=== PATIENT | female | born 1985 | race Caucasian/White ===

== ENCOUNTER 2019-04-15 21:22 | Emergency (ER) | payer MEDICAID ==
[~2019-04-15] VITALS: Ht 170.2 cm; Wt 68.2 kg
[2019-04-15 21:39] VITALS: BP 137/75; Ht 170.2 cm; Wt 68.2 kg
[2019-04-15 22:11] LABS: BASOPHILS 0.2 % (0-2); EOSINOPHILS 8.6 % (0-7); HEMATOCRIT 38.5 % (36.0-48.0); HEMOGLOBIN 12.9 g/dL (12-16); IMMATURE GRANULOCYTES 0.2 % (0-5); LYMPHOCYTES 25.5 % (15-50); MCH 29.3 pg (26.0-34.0); MCHC 33.5 g/dL (31.0-37.0); MCV 87.5 fL (80.0-100.0); MEAN PLATELET VOLUME 8.9 fL (7.4-10.4); MONOCYTES 8.8 % (2-11); NEUTROPHILS 56.7 % (40-80); PLATELET COUNT 206 10x3/uL (130-400); WBC 4.9 10x3/uL (4.8-10.8)
[2019-04-15 22:18] LABS: APPEARANCE HAZY (CLEAR); BILIRUBIN NEGATIVE (NEGATIVE); COLOR YELLOW (YELLOW); GLUCOSE NEGATIVE (NEGATIVE); KETONE NEGATIVE (NEGATIVE); NITRITE NEGATIVE (NEGATIVE); PROTEIN NEGATIVE (NEGATIVE); UROBILINOGEN NORMAL (NORMAL)
[2019-04-15 22:23] LABS: HCG URINE NEGATIVE (NEGATIVE)
[2019-04-15 22:23] LABS: CALC OSMOLALITY 282 mosm/kg (275-300); CALCIUM 9.2 mg/dL (8.5-10.1); CARBON DIOXIDE 30.4 mmol/L (21.0-32.0); CHLORIDE - SERUM 104 mmol/L (98-107); CREATININE - SERUM 0.8 mg/dL (0.6-1.3); GLUCOSE 118 mg/dL (74-106); SODIUM 141 mmol/L (136-145); UREA NITROGEN 14 mg/dL (7-18); eGFR NON AFRICAN AMERICAN 87 mL/min (90-120)
[2019-04-15 22:32] LABS: ALBUMIN 3.5 g/dL (3.4-5.0); ALKALINE PHOSPHATASE 79 U/L (46-116); ALT (SGPT) 110 U/L (10-68); AMYLASE - SERUM 17 U/L (25-115); BILIRUBIN - TOTAL 0.34 mg/dL (0.2-1.3); LIPASE 59 U/L (73-393); PROTEIN - SERUM 6.6 g/dL (6.4-8.2); TROPONIN-I < 0.017 ng/mL (0.000-0.060)
[2019-04-16] MEDS ORDERED: CLEOCIN HCL300 MG PO (00:07)
[2019-04-16] MEDS ORDERED: NEURONTIN600 MG PO (00:07)
[2019-04-16] MEDS ORDERED: PREDNISONE20 MG PO (00:07)
== END 2019-04-15 23:16 | disposition other institution (70) ==
LOC: D.ER 21:22
PROVIDERS: Family Medicine
DX: J01.90 Acute sinusitis, unspecified (principal); N89.8 Other specified noninflammatory disorders of vagina; Z72.0 Tobacco use; K50.90 Crohn's disease, unspecified, without complications